=== PATIENT | female | born 2005 | race Two or more races ===

== ENCOUNTER 2023-09-28 13:56 | Inpatient (IN) | payer BC ==
[~2023-09-28] VITALS: Ht 167.6 cm; Wt 52.8 kg
[2023-09-28] MEDS: ACETAMINOPHEN 325 MG TAB PO ONE (15:55)
[2023-09-28 16:42] LABS: Hemoglobin 13.4 g/dL (12.2-16.2); Mean Corpuscular Hemoglobin 30.3 pg (28.0-32.0); Mean Corpuscular Hgb Conc. 33.5 g/dL (32.0-36.0); Mean Corpuscular Volume 90.7 fL (80.0-100.0); Red Blood Cells 4.41 10^6/uL (4.0-5.20); White Blood Cell 23.9 10^3/uL (4.4-10.8)
[2023-09-28 16:46] LABS: Basophils % (manual) 0 (0.0-2.0); Blast Cells 0; Eosinophils % (manual) 0 (0-7); Myelocytes % 0; Promyelocytes % 0; Reactive Lymphocytes 0
[2023-09-28 17:15] LABS: Alanine Aminotransferase 36 U/L (7-40); Albumin 4.4 g/dL (3.2-4.8); Alkaline Phosphatase 98 U/L (46-116); Anion Gap 7 (5-15); Aspartate Aminotransferase 17 U/L (13-40); BUN/Creatinine Ratio 12.1 (10.0-20.0); Bilirubin, Total 2.5 mg/dL (0.2-1.0); Blood Urea Nitrogen 8 mg/dL (9-23); Calcium 9.5 mg/dL (8.5-10.1); Carbon Dioxide 25 mmol/L (20-30); Chloride 100 mmol/L (98-107); Glucose 117 mg/dL (74-106); Potassium 3.8 mmol/L (3.5-5.1); Sodium 132 mmol/L (136-145); Total Protein 6.6 g/dL (5.7-8.2)
[2023-09-28 17:49] LABS: Lactic Acid w/Reflex 2.3 mmol/L (0.4-2.0)
[2023-09-28 18:31] LABS: Band Neutrophils % (manual) 32; Lymphocytes % (manual) 1 (10.0-50.0); Metamyelocytes % 1; Monocytes % (manual) 4 (0-12); Platelet Estimate Adequate
[2023-09-28 18:32] LABS: RBC Morphology Normal
[2023-09-28 19:03] LABS: Urine Bacteria FEW /hpf (None Seen); Urine Blood 2+ /uL (Negative); Urine Clarity Clear (Clear); Urine Color Light-Yellow (Yellow); Urine Protein, UAD Negative (Negative); Urine Specific Gravity 1.004 (1.001-1.035); Urine Urobilinogen Normal (Negative); Urine WBC 3 /hpf (0 - 5); Urine pH 6.5 (5.0-9.0)
[2023-09-28 20:00] VITALS: O2SAT 99
[2023-09-28] MEDS: ONDANSETRON HCL 4 MG/2 ML VIAL IV ONE ×2 (20:14→22:39)
[2023-09-28] MEDS: MORPHINE SULFATE 4 MG/ML SYR/VIAL IV ONE ×2 (20:14→22:39)
[2023-09-28] MEDS: AMPICILLIN & SULBACTAM SODIUM 3 GM in SODIUM CHL 0.9% 100 ML IV ONE (20:38)
[2023-09-28] MEDS ORDERED: MORPHINE SULFATE INJ 2 MG/ml SYRG IV PRN (23:00)
[2023-09-28] MEDS ORDERED: ACETAMINOPHEN 325 MG TAB PO PRN (23:00)
[2023-09-28] MEDS: AMPICILLIN & SULBACTAM SODIUM 3 GM in SODIUM CHL 0.9% 100 ML IV SCH (23:00)
[2023-09-28] MEDS ORDERED: NITROGLYCERIN 0.4 MG SL TAB SL PRN (23:00)
[2023-09-28] MEDS ORDERED: DOCUSATE SOD 100 MG CAP PO PRN (23:00)
[2023-09-28 23:23] LABS: Rapid Strep A Screen-Throat Positive
[2023-09-28] MEDS: KETOROLAC TROMETH 30 MG/ML 1ML VIAL IV ONE (23:26)
[2023-09-28] MEDS: SODIUM CHLORIDE 0.9% 1,000 ML IV SCH (23:26)
[2023-09-29] MEDS: ONDANSETRON HCL 4 MG/2 ML VIAL IV PRN (03:12)
[2023-09-29] MEDS: MORPHINE SULFATE INJ 2 MG/ml SYRG IV PRN (03:13)
[2023-09-29] MEDS: IOHEXOL 350 MG/ML 100ML IJ ONE (05:29)
[2023-09-29 06:40] LABS: Basophils # (auto) 0 10 ^3/uL (0-0.2); Basophils % (auto) 0.1 % (0.0-2.0); Eosinophils # (auto) 0.3 10 ^3/uL (0-0.8); Eosinophils % (auto) 1.6 % (0.0-7.0); Hematocrit 32.9 % (36.0-46.0); Hemoglobin 11.3 g/dL (12.2-16.2); Lymphocytes # (auto) 0.7 10 ^3/uL (0.4-5.4); Lymphocytes % (auto) 3.7 % (10.0-50.0); Mean Corpuscular Hemoglobin 31.3 pg (28.0-32.0); Mean Corpuscular Hgb Conc. 34.4 g/dL (32.0-36.0); Mean Corpuscular Volume 91.1 fL (80.0-100.0); Monocytes # (auto) 0.9 10 ^3/uL (0-1.3); Monocytes % (auto) 4.5 % (0.0-12.0); Neutrophils # (auto) 17.2 10 ^3/uL (1.6-8.6); Neutrophils % (auto) 90.1 % (37.0-80.0); Red Blood Cells 3.62 10^6/uL (4.0-5.20); Red Cell Distribution Width 13.3 % (11.8-14.3); White Blood Cell 19.1 10^3/uL (4.4-10.8)
[2023-09-29 06:55] LABS: Alanine Aminotransferase 23 U/L (7-40); Albumin 3.9 g/dL (3.2-4.8); Alkaline Phosphatase 94 U/L (46-116); Anion Gap 7 (5-15); Aspartate Aminotransferase 12 U/L (13-40); BUN/Creatinine Ratio 13.6 (10.0-20.0); Blood Urea Nitrogen 9 mg/dL (9-23); Calcium 8.9 mg/dL (8.7-10.4); Carbon Dioxide 27 mmol/L (20-30); Chloride 100 mmol/L (98-107); Glucose 106 mg/dL (74-106); Potassium 3.6 mmol/L (3.5-5.1); Sodium 134 mmol/L (136-145)
[2023-09-29 06:56] LABS: Bilirubin, Total 1.4 mg/dL (0.2-1.0); Total Protein 6.2 g/dL (5.7-8.2)
[2023-09-29 08:58] VITALS: PULSE 59; RESP 18; O2SAT 99
[2023-09-29] MEDS: HYDROcodone-ACET 5/325MG TAB PO PRN (09:07)
[2023-09-29] MEDS: PANTOPRAZOLE 40 MG/10 ML VIAL INJ IV SCH (10:15)
[2023-09-29 11:24] LABS: INR 1.01 (0.9-1.15); Partial Thromboplastin Time 28.9 SEC (24.5-34.5); Prothrombin Time 10.7 sec (9.3-11.8)
[2023-09-29 11:32] LABS: Creatine Kinase IFCC 84 U/L (34-145)
[2023-09-29 11:41] LABS: CRP High Sensitivity > 20.00 mg/dL (<1.0)
[2023-09-29 11:49] LABS: Erythrocyte Sedimentation Rate 87 mm/hr (0-20)
[2023-09-29] MEDS: SODIUM CHLORIDE 0.9% 1,000 ML IV SCH (11:49)
[2023-09-29 11:53] LABS: Thyroid Stimulating Hormone 2.8 uIU/mL (0.55-4.78)
[2023-09-29 13:58] VITALS: BP 91/47; PULSE 79; RESP 20; TEMP 98; O2SAT 100
[2023-09-29] MEDS ORDERED: AUG875T PO (17:21)
[2023-09-29] MEDS ORDERED: IBUP-1454 PO (17:21)
[2023-09-30 06:06] LABS: CMV IgG Antibody <0.60 U/mL (0.00-0.59)
[2023-09-30 07:07] LABS: CMV IgM Antibody <30.0 AU/mL (0.0-29.9)
[2023-09-30 07:07] LABS: EBV Ab VCA IgG Antibody <18.0 U/mL (0.0-17.9); EBV Ab VCA IgM Antibody <36.0 U/mL (0.0-35.9); EBV Early Antigen IgG Antibody <18.0 U/mL (0.0-17.9)
[2023-09-30 08:07] LABS: Antistreptolysin O Antibody 249.4 IU/mL (0.0-200.0)
== END 2023-09-29 17:16 | disposition left against medical advice (07) | DRG 603 ==
LOC: ER 13:56 → OVERFLOW 22:58
PROVIDERS: ADMIT Internal Medicine; ATTEND Internal Medicine
DX: L03.221 Cellulitis of neck (principal); L04.0 Acute lymphadenitis of face, head and neck; J02.0 Streptococcal pharyngitis; D64.9 Anemia, unspecified; Z53.29 Procedure and treatment not carried out because of patient's decision for other reasons
CPT/HCPCS: 36415; 70491; 71260; 80053; 81001; 82550; 83036; 83605; 83615; 83735; 84443; 84484; 85007; 85025; 85027; 85045; 85610; 85652; 85730; 86141; 86160; 86644; 86645; 86664; 87040; 87880; 93970; 96365; 96375; C9113; G0378; J1885; J2405